=== PATIENT | female | born 1975 | race Caucasian/White ===

== ENCOUNTER 2023-09-19 16:43 | Emergency (ER) | payer MEDICAID ==
[~2023-09-19] VITALS: Ht 175.3 cm; Wt 68.2 kg
[~2023-09-19 16:43] MED LIST: NO HOME MEDS
[2023-09-19 16:56] VITALS: TEMP 97.6
[2023-09-19] MEDS ORDERED: HYDROcodone/acetaminophen 5mg/325mg tablet PO ONE (17:10)
[2023-09-19] MEDS ORDERED: ketorolac trometh. 30mg/ml inj. IM ONE (17:10)
[2023-09-19] MEDS ORDERED: ondansetron 4mg rapidly disintigrating tab PO ONE (17:10)
[2023-09-19] MEDS: orphenadrine citrate 60mg/2ml inj. IM ONE ×2 (17:59→18:01)
[2023-09-19] MEDS ORDERED: IBUP-1984 PO (18:13)
[2023-09-19] MEDS ORDERED: CYCL-394 PO (18:13)
[2023-09-19 18:24] VITALS: BP 143/98; PULSE 67; RESP 17; O2SAT 97
[2023-09-19 18:27] LABS: BILIRUBIN,URINE MODERATE (Neg); CLARITY,URINE SLIGHTLY CLOUDY (Clear); COLOR,URINE YELLOW (Yellow); GLUCOSE, URINE NEGATIVE (Neg); KETONES,URINE 15 mg/dl (Neg); LEUKOCYTE ESTERASE ,URINE TRACE (Neg); NITRITES, URINE NEGATIVE (Neg); OCCULT BLOOD,URINE SMALL (Neg); PROTEIN,URINE 30 mg/dl (Neg); UROBILINOGEN,URINE 0.2 E.U/dL (0.2-1.0)
[2023-09-19 18:32] LABS: UA COLLECTION TYPE CLN CATCH MIDSTREAM
[2023-09-19 18:46] LABS: BACTERIA,URINE 3+ /HPF (Neg); MUCUS STRANDS MANY /LPF (Neg); RBC,URINE 0-2 /HPF (0-2); SQUAMOUS EPITHELIAL CELL,UR MODERATE /LPF (FEW); WBC CLUMPS,URINE FEW /HPF (NEGATIVE)
== END 2023-09-19 18:29 | disposition home or self-care (01) ==
LOC: ER 16:44
DX: M54.50 Low back pain, unspecified (principal); M62.830 Muscle spasm of back; G89.29 Other chronic pain; F41.9 Anxiety disorder, unspecified; F12.90 Cannabis use, unspecified, uncomplicated; Z72.89 Other problems related to lifestyle; Z79.899 Other long term (current) drug therapy
CPT/HCPCS: 81001; 87088; 96372; 99284; J1885; J2360; 87077; 87186